=== PATIENT | male | born 1990 | race Caucasian/White ===

== ENCOUNTER → 2019-04-21 | Outpatient (CLI) | payer BC ==
--- NOTE | 2019-04-21 10:55 | Diagnostic Imaging Report ---
INDICATION: Low back pain. Time of exam 9:44 a.m. FINDINGS: Three views of the lumbar spine were obtained. Curvature of the lumbar spine is normal. There is minimal retrolisthesis of L5 on S1. Vertebral body heights are maintained. No acute compression fracture is detected. There is significant degenerative disc disease at the L5-S1 level with moderate disc space narrowing and marginal osteophyte formation. Remaining disc spaces are well-maintained. IMPRESSION: L5-S1 degenerative disc disease. No other significant abnormality is detected. Dictated by: Dictated on workstation # [id number]
== END ==
LOC: RAD FS 09:41
PROVIDERS: ATTEND Nurse Practitioner
DX: M51.37 Other intervertebral disc degeneration, lumbosacral region (principal)
CPT/HCPCS: 72100

== ENCOUNTER 2019-07-10 19:23 | Emergency (ER) | payer BC ==
[~2019-07-10] VITALS: Ht 188 cm; Wt 73.8 kg
--- NOTE | 2019-07-10 19:42 | ED EENT ---
History of Present Illness General Chief Complaint: Dental Problems/Pain Stated Complaint: LEFT JAW PAIN Nursing Triage Note: pt states teeth have been bothering him for the past three weeks, worse tonight, left side Source: patient History of Present Illness Date Seen by Provider: Jul 10, 2019 Time Seen by Provider: 19:41 Initial Comments 28-year-old male presenting with complaints of 3 weeks of off and on pain to the left side of his jaw. He has had tooth that has a Missing and has tried to fill him with some temporary filling. However the pain in that tooth has been off and on over the last few weeks recurrence of this. He has been managing with [id number] medications until tonight. For some reason tonight the pain is been more severe and eppm-wck-fxnegha medicine has not helped. He has pain referred into his left ear. He denies any recent trauma or injury that would've made it worse. He denies any fever or chills. He has had no drainage from the tooth. He does have swelling around the gum line. He has not seen a dentist or doctor about it until tonight. He does not take any medicine on a regular basis. Allergies and Home Medications Allergies Coded Allergies: No Known Drug Allergies (Unverified , 07/10/19) Home Medications Amoxicillin/Potassium Clav 1 Each Tablet, 1 EACH PO BID Prescribed by: ELY MACKAY on 07/10/192003 Ibuprofen 800 Mg Tablet, 800 MG PO Q8H PRN for PAIN Prescribed by: ELY MACKAY on 07/10/192003 Patient Home Medication List Home Medication List Reviewed: Yes Review of Systems Review of Systems Constitutional: No chills, No fever Eyes: No Symptoms Reported Ears: Pain (left ear pain referred from his jaw) Nose: no symptoms reported Mouth: see HPI, pain, swelling (swelling around the tooth on the left mandible that is painful); denies bloody discharge, denies clear discharge, denies purulent discharge, denies serosanguinous discharge Throat: no symptoms reported Respiratory: no symptoms reported Cardiovascular: no symptoms reported Gastrointestinal: no symptoms reported Musculoskeletal: no symptoms reported Skin: no symptoms reported Neurological: Headache (left-sided headache referred from his jaw pain) Past Ypxuldv-Qwmbla-Enuyyr Hx Past Med/Social Hx: Reviewed Nursing Past Med/Soc Hx Patient Social History Alcohol Use: Denies Use Recreational Drug Use: No Smoking Status: Current Everyday Smoker Type Used: Cigarettes 2nd Hand Smoke Exposure: No Recent Foreign Travel: No Contact w/Someone Who Travel: No Recent Infectious Disease Expo: No Recent Hopitalizations: No Physical Abuse: No Sexual Abuse: No Mistreated: No Fear: No Seasonal Allergies Seasonal Allergies: No Past Medical History Surgeries: No Respiratory: No Cardiac: No Neurological: No Genitourinary: No Gastrointestinal: No Musculoskeletal: No Endocrine: No HEENT: No Cancer: No Psychosocial: No Integumentary: No Blood Disorders: No Physical Exam Vital Signs Vital Signs - First Documented 07/10/19 19:35 Temp 36.5 Pulse 77 Resp 18 B/P (MAP) 144/116 (125) Pulse Ox 99 Height, Weight, BMI Height: '" Weight: lbs. oz. kg; 20.00 BMI Method: General Appearance: WD/WN, moderate distress (tearful from the pain in his left mandible) Eyes: bilateral eye PERRL, bilateral eye EOMI Ears: bilateral ear other (cerumen impaction bilaterally) Mouth/Throat: pharynx normal, dental tenderness (left mandible he has a tooth with a cavity and missing And some temporary filling present. 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, alert, oriented x 3, other (anxious and tearful due to the pain in his left mandible) Skin: normal color, warm/dry Progress/Results/Core Measures Results/Orders My Orders Orders - ELY MACKAY MD Lidocaine 1% Inj 20 Ml (Xylocaine 1% Inj (07/10/19 19:52) Amoxicillin/Clavulanate Tablet (Augmenti (07/10/19 19:52) Rx-Hydrocodone/Apap 5-325 Mg (Rx-Vicodin (07/10/19 20:00) Vital Signs/I&O 07/10/19 07/10/19 19:35 20:15 Temp 36.5 36.5 Pulse 77 77 Resp 18 18 B/P (MAP) 144/116 (125) 144/116 (125) Pulse Ox 99 99 Blood Pressure Mean: 125 Progress Progress Note #1: Progress Note Patient verbally consented for a dental block to be placed in the angle of the jaw of the left mandible. Will start her on antibiotics and sent with a 4 pack of hydrocodone. Patient states that he has a history of drug addiction and has been clean for 14 months he did not want a prescription for medication he will take the pills and give them to his to dispense. He plans to call the dentist on Friday since he has dental insurance through work and will follow-up about the tooth and the pain. Progress Note #2: Progress Note Dental block performed with 1% plain lidocaine using a 27 ga 1 and 1/4 inch needle to infiltrate 3 mL of plain 1 % Lidocaine at the angle of the mandible on the left side of the jaw. Pt tolerated the procedure well without any immediate complication. He had immediate pain relief. Counseled on return and follow up precautions. Departure Impression Primary Impression: Pain due to dental caries Disposition: HOME, SELF-CARE Condition: Stable Departure-Patient Inst. Decision time for Depature: 20:13 Referrals: [facility]/ (PCP) Primary Care Physician JEROMY GRAHAM APRN (Family) Primary Care Physician Patient Instructions: Dental Pain (DC), Tooth Decay, Adult (DC) Add. Discharge Instructions: Take the full course of antibiotics. Call the Dentist Friday to arrange for a follow up to be seen as soon as possible for definitive care of your tooth. You may use an ice pack to help with swelling and pain. All discharge instructions reviewed with patient and/or family. Voiced understanding. Scripts Ibuprofen (Ibuprofen) 800 Mg Tablet 800 MG PO Q8H PRN for PAIN for 10 Days, #30 TAB 0 Refills Prov: ELY MACKAY MD 07/10/19 Amoxicillin/Potassium Clav (Amox Tr-K Clv 875-125 mg Tab) 1 Each Tablet 1 EACH PO BID for Dental Abscess/pain for 10 Days, #20 TAB 0 Refills Prov: ELY MACKAY MD 07/10/19 Images Mouth/Nose 1 - Caries (cavity present. Also missing a dental cap. ), Swelling (Swelling around the tooth at the gumline and gingival inflammation), Tenderness ELY MACKAY MD Jul 10, 2019 19:41
[2019-07-10] MEDS ORDERED: AUGMENTIN 875 MG TAB (AMOXICILLIN/CLAVULANATE) PO STA (19:52)
[2019-07-10] MEDS ORDERED: LIDOCAINE 1% INJ 20 ML 20 ML VIAL INJ STA (19:52)
[2019-07-10] MEDS ORDERED: RX-HYDROCODONE/APAP 5/325 MG #4 TAB PK PO PRN (20:00)
[2019-07-10] MEDS ORDERED: IBUP-1780 PO (20:04)
[2019-07-10] MEDS ORDERED: AMOX1TAB12 PO (20:04)
[2019-07-10 20:15] VITALS: BP 144/116
== END 2019-07-10 20:15 | disposition home or self-care (01) ==
LOC: EDUNIT# 19:23 → ER FS 19:26
DX: K02.9 Dental caries, unspecified (principal); F17.210 Nicotine dependence, cigarettes, uncomplicated
CPT/HCPCS: 99284

== ENCOUNTER 2019-12-27 17:59 | Emergency (ER) | payer SELFPAY ==
[~2019-12-27] VITALS: Ht 190 cm; Wt 70.2 kg
[~2019-12-27 17:59] MED LIST: AMOX1TAB12 PO; IBUP-1780 PO
[2019-12-27] MEDS ORDERED: NS IV 1000 ML 1,000 ML IV STA ×2 (18:11→18:52)
[2019-12-27] MEDS ORDERED: ONDANSETRON 4 MG/2 ML (SDV) Z0FRAN IVP STA (18:11)
--- NOTE | 2019-12-27 18:18 | ED General ---
General Chief Complaint: Abdominal/GI Problems Stated Complaint: VOMITING,EAR POPPING,LOSING VISION Nursing Triage Note: States he got hot at work and then his ears started popping, he got blurry vision, and he has been dry heaving for the past 3 hours. Feels like his muscles are twitching and his whole body aches. Nursing Sepsis Screen: No Definite Risk Source of Information: Patient History of Present Illness Date Seen by Provider: Dec 27, 2019 Time Seen by Provider: 18:04 Initial Comments 29-year-old male presenting with complaints of getting overheated at work. He reports that when he got hot his ear started to pop and he started throwing up. He has only urinated once today and it was really dark. He feels like his muscles are cramping and tightening up. He has been trying to take Pedialyte in small sips to rehydrate but can't keep anything down. When he starts vomiting he has abdominal cramps and feels like his vision gets blurry. He denies any ill contacts. He hasn't not had a fever or chills. He was working outside today in the heat for over 7 hours. Allergies and Home Medications Allergies Coded Allergies: No Known Drug Allergies (Unverified , 07/10/19) Home Medications Amoxicillin/Potassium Clav 1 Each Tablet, 1 EACH PO BID Prescribed by: ELY MACKAY on 07/10/192003 Ibuprofen 800 Mg Tablet, 800 MG PO Q8H PRN for PAIN Prescribed by: ELY MACKAY on 07/10/192003 Patient Home Medication List Home Medication List Reviewed: Yes Review of Systems Review of Systems Constitutional: No chills, No fever EENTM: blurred vision (when he throws up), other (feels like his ears pop prior to him throwing up); No epistaxis, No nose congestion Respiratory: No cough Cardiovascular: No chest pain Gastrointestinal: abdominal pain (cramping when he vomits); No diarrhea; nausea, vomiting Genitourinary: decreased output, other (decreased urine output and it was really dark when he did urinate the one time today) Musculoskeletal: muscle cramps, muscle twitching Skin: no symptoms reported Psychiatric/Neurological: Headache; Denies Numbness, Denies Paresthesia Hematologic/Lymphatic: No Symptoms Reported Immunological/Allergic: no symptoms reported Past Vfxlkhu-Yrmkhc-Ajmyzf Hx Past Med/Social Hx: Reviewed Nursing Past Med/Soc Hx Patient Social History Type Used: Cigarettes 2nd Hand Smoke Exposure: No Recent Foreign Travel: No Contact w/Someone Who Travel: No Recent Infectious Disease Expo: No Recent Hopitalizations: No Seasonal Allergies Seasonal Allergies: No Past Medical History Surgeries: No Respiratory: No Cardiac: No Neurological: No Genitourinary: No Gastrointestinal: No Musculoskeletal: No Endocrine: No HEENT: No Cancer: No Psychosocial: No Integumentary: No Blood Disorders: No Physical Exam Vital Signs Vital Signs - First Documented 12/27/19 18:06 Temp 36.2 Pulse 85 Resp 16 B/P (MAP) 149/93 (111) Capillary Refill : Less Than 3 Seconds Height, Weight, BMI Height: '" Weight: lbs. oz. kg; 19.00 BMI Method: General Appearance: WD/WN, Mild Distress HEENT: PERRL/EOMI, Pharynx Normal, Other (bilateral cerumen impaction) Neck: Full Range of Motion, Normal Inspection, Non Tender, Supple Respiratory: Chest Non Tender, Lungs Clear, Normal Breath Sounds Cardiovascular: Regular Rate, Rhythm, No Edema, No Murmur, Normal Peripheral Pulses Gastrointestinal: Normal Bowel Sounds, No Pulsatile Mass, Non Tender, Soft Rectal: Deferred Extremity: Normal Capillary Refill, Normal Inspection, Normal Range of Motion, No Pedal Edema Neurologic/Psychiatric: Alert, Oriented x3, No Motor/Sensory Deficits, Normal Mood/Affect, 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 Skin: Normal Color, Warm/Dry Progress/Results/Core Measures Suspected Sepsis Recent Fever Within 48 Hours: No Infection Criteria Present: None New/Unexplained Altered Menta: No Sepsis Screen: No Definite Risk SIRS Temperature: Pulse: 85 Respiratory Rate: 16 Laboratory Tests 12/27/19 18:13: White Blood Count 14.5H Blood Pressure 149 /93 Mean: 111 Laboratory Tests 12/27/19 18:13: Creatinine 1.25, Platelet Count 292, Total Bilirubin 1.7H Results/Orders Lab Results Laboratory Tests Test 12/27/19 18:13 12/27/19 19:26 Range/Units White Blood Count 14.5 H 4.3-11.0 10^3/uL Red Blood Count 5.85 4.35-5.85 10^6/uL Hemoglobin 18.0 H 13.3-17.7 G/DL Hematocrit 52 40-54 % Mean Corpuscular Volume 88 80-99 FL Mean Corpuscular Hemoglobin 31 25-34 PG Mean Corpuscular Hemoglobin Concent 35 32-36 G/DL Red Cell Distribution Width 12.6 10.0-14.5 % Platelet Count 292 130-400 10^3/uL Mean Platelet Volume 9.6 7.4-10.4 FL Neutrophils (%) (Auto) 89 H 42-75 % Lymphocytes (%) (Auto) 4 L 12-44 % Monocytes (%) (Auto) 6 0-12 % Eosinophils (%) (Auto) 0 0-10 % Basophils (%) (Auto) 0 0-10 % Neutrophils # (Auto) 13.0 H 1.8-7.8 X 10^3 Lymphocytes # (Auto) 0.6 L 1.0-4.0 X 10^3 Monocytes # (Auto) 0.8 0.0-1.0 X 10^3 Eosinophils # (Auto) 0.0 0.0-0.3 10^3/uL Basophils # (Auto) 0.1 0.0-0.1 10^3/uL Neutrophils % (Manual) 86 % Lymphocytes % (Manual) 3 % Monocytes % (Manual) 6 % Eosinophils % (Manual) 0 % Basophils % (Manual) 0 % Band Neutrophils 5 % Sodium Level 136 135-145 MMOL/L Potassium Level 4.7 3.6-5.0 MMOL/L Chloride Level 93 L 98-107 MMOL/L Carbon Dioxide Level 19 L 21-32 MMOL/L Anion Gap 24 H 5-14 MMOL/L Blood Urea Nitrogen 26 H 7-18 MG/DL Creatinine 1.25 0.60-1.30 MG/DL Estimat Glomerular Filtration Rate > 60 BUN/Creatinine Ratio 21 Glucose Level 98 70-105 MG/DL Calcium Level 10.4 H 8.5-10.1 MG/DL Corrected Calcium 8.5-10.1 MG/DL Magnesium Level 2.5 H 1.6-2.4 MG/DL Total Bilirubin 1.7 H 0.1-1.0 MG/DL Aspartate Amino Transf (AST/SGOT) 38 H 5-34 U/L Alanine Aminotransferase (ALT/SGPT) 58 H 0-55 U/L Alkaline Phosphatase 81 40-136 U/L Total Protein 9.3 H 6.4-8.2 GM/DL Albumin 5.7 H 3.2-4.5 GM/DL Lipase 16 8-78 U/L My Orders Orders - ELY MACKAY MD Comprehensive Metabolic Panel (12/27/19 18:11) Lipase (12/27/19 18:11) Ua Culture If Indicated (12/27/19 18:11) Ed Iv/Invasive Line Start (12/27/19 18:11) Cbc With Automated Diff (12/27/19 18:11) Magnesium (12/27/19 18:11) Ns Iv 1000 Ml (Sodium Chloride 0.9%) (12/27/19 18:11) Ondansetron Injection (Zofran Injectio (12/27/19 18:11) Manual Differential (12/27/19 18:13) Ns Iv 1000 Ml (Sodium Chloride 0.9%) (12/27/19 18:52) Rx-Ondansetron Po (Rx-Zofran Po) (12/27/19 19:30) Vital Signs/I&O 12/27/19 18:06 Temp 36.2 Pulse 85 Resp 16 B/P (MAP) 149/93 (111) Capillary Refill : Less Than 3 Seconds Blood Pressure Mean: 111 Progress Note #1: Progress Note Check labs and urine. Give IV fluids with Zofran and see if he could tolerate oral intake as well Progress Note #2: Time: 18:52 Progress Note feels better after Zofran and 1 L of NS. will try oral challenge with ice water and give a 2nd L of NS. updated pt that his labs just look like he is a little dehydrated but overall the electrolytes look ok. Will continue fluids to get him to be able to urinate. He reports his muscle cramps and pain is improved and overall he feels better already, but has no sensation of needing to urinate. Progress Note #3: Time: 19:24 Progress Note 2nd L of NS almost finished infusing and tolerating PO without emesis. He is able to provide a urine specimen now. Will discharge to home with a few Zofran ODT available if needed for nausea/vomiting overnight. Push fluids and rest. Departure Impression Primary Impression: Heat cramp, initial encounter Additional Impression: Heat exhaustion due to water depletion Qualified Codes: T67.3XXA - Heat exhaustion, anhydrotic, initial encounter Disposition: 01 HOME, SELF-CARE Condition: Improved Departure-Patient Inst. Decision time for Depature: 19:36 Referrals: [facility] (PCP) Primary Care Physician JEROMY GRAHAM APRN (Family) Primary Care Physician Patient Instructions: Heat Exhaustion and Heat Stroke (DC), Dehydration, Adult (DC) Add. Discharge Instructions: Continue to drink fluids and stay well hydrated. Use the dissolving nausea medicine every 6 hours as needed for nausea/vomiting. Check with clinic for continued concerns or if worsens then return. Try to limit your exposure to extreme heat and keep hydrated with electrolyte drinks All discharge instructions reviewed with patient and/or family. Voiced understanding. ELY MACKAY MD Dec 27, 2019 18:18
[2019-12-27 18:22] LABS: BASOPHILS % (AUTO) 0 % (0-10); EOSINOPHILS % (AUTO) 0 % (0-10); HEMATOCRIT 52 % (40-54); LYMPHOCYTES % (AUTO) 4 % (12-44); MEAN CORPUSCULAR HEMOGLOBIN 31 PG (25-34); MEAN CORPUSCULAR HGB CONC 35 G/DL (32-36); MEAN CORPUSCULAR VOLUME 88 FL (80-99); MEAN PLATELET VOLUME 9.6 FL (7.4-10.4); MONOCYTES % (AUTO) 6 % (0-12); NEUTROPHILS % (AUTO) 89 % (42-75); PLATELET COUNT 292 10^3/uL (130-400); RED CELL DISTRIBUTION WIDTH 12.6 % (10.0-14.5); WHITE BLOOD COUNT 14.5 10^3/uL (4.3-11.0)
[2019-12-27 18:23] LABS: BASOPHILS # (AUTO) 0.1 10^3/uL (0.0-0.1); LYMPHOCYTES # (AUTO) 0.6 X 10^3 (1.0-4.0); MONOCYTES # (AUTO) 0.8 X 10^3 (0.0-1.0)
[2019-12-27 18:37] LABS: BAND NEUTROPHILS 5 %; BASOPHILS % (MANUAL) 0 %; EOSINOPHILS % (MANUAL) 0 %; LYMPHOCYTES % (MANUAL) 3 %; MONOCYTES % (MANUAL) 6 %; NEUTROPHILS % (MANUAL) 86 %
[2019-12-27 18:42] LABS: CARBON DIOXIDE 19 MMOL/L (21-32); CHLORIDE 93 MMOL/L (98-107); POTASSIUM 4.7 MMOL/L (3.6-5.0); SODIUM 136 MMOL/L (135-145)
[2019-12-27 18:43] LABS: ALANINE AMINOTRANSFERASE 58 U/L (0-55); ALBUMIN 5.7 GM/DL (3.2-4.5); ALKALINE PHOSPHATASE 81 U/L (40-136); BILIRUBIN,TOTAL 1.7 MG/DL (0.1-1.0); BUN/CREATININE RATIO 21; CALCIUM 10.4 MG/DL (8.5-10.1); CREATININE SERUM 1.25 MG/DL (0.60-1.30); GFR ESTIMATED > 60; GLUCOSE 98 MG/DL (70-105); LIPASE 16 U/L (8-78); MAGNESIUM 2.5 MG/DL (1.6-2.4); TOTAL PROTEIN 9.3 GM/DL (6.4-8.2)
[2019-12-27] MEDS ORDERED: RX-ONDANSETRON 4 MG ODT (ZOFRAN) PPK #4 PO PRN (19:30)
[2019-12-27 19:46] VITALS: BP 133/79
[2019-12-27 19:48] LABS: CLARITY,URINE CLEAR; COLOR,URINE YELLOW
[2019-12-27 19:49] LABS: BACTERIA,URINE NEGATIVE /HPF; BILIRUBIN,URINE 1+ (NEGATIVE); GLUCOSE, URINE (UA) NEGATIVE (NEGATIVE); KETONES,URINE 2+ (NEGATIVE); LEUKOCYTE ESTERASE ,URINE NEGATIVE (NEGATIVE); NITRITE,URINE NEGATIVE (NEGATIVE); PROTEIN,URINE 1+ (NEGATIVE); SQUAMOUS EPITHELIAL CELL,UR RARE /HPF; WBC,URINE 0-2 /HPF
== END 2019-12-27 19:46 | disposition home or self-care (01) ==
LOC: EDUNIT# 17:59 → ER FS 18:03
DX: T67.2XXA Heat cramp, initial encounter (principal); T67.5XXA Heat exhaustion, unspecified, initial encounter
CPT/HCPCS: 36415; 80053; 81000; 83690; 83735; 85007; 85027

== ENCOUNTER → 2020-10-06 | Outpatient (CLI) | payer MEDICAID ==
--- NOTE | 2020-10-06 10:32 | Diagnostic Imaging Report ---
Bilateral hands 1005 hours. INDICATION: Injury, wrist pain. 3 views of each hand and wrist were obtained. There are no prior studies available for comparison. FINDINGS: There is no fracture, dislocation or acute bony abnormality evident. There is an 8 mm sclerotic focus within the lunate bone on the left. This is of uncertain etiology. Most likely this is a benign process. The soft tissues are unremarkable. There is no sign of a radiopaque foreign body. IMPRESSION: There is no evidence for an acute bony abnormality or for a radiopaque foreign body. Dictated by: Dictated on workstation # [id number]
== END ==
LOC: RAD FS 09:58
PROVIDERS: ATTEND Nurse Practitioner Family
DX: S69.92XA Unspecified injury of left wrist, hand and finger(s), initial encounter (principal); S69.91XA Unspecified injury of right wrist, hand and finger(s), initial encounter; X58.XXXA Exposure to other specified factors, initial encounter